=== PATIENT | female | born 2000 | race Caucasian/White ===

== ENCOUNTER 2024-11-13 09:12 | Emergency (ER) | payer BC ==
[2024-11-13 10:13] LABS: Bilirubin Neg (Negative); Blood, Urine 150 (Negative); Clarity Clear (Clear); Glucose, Urine (Dipstick) Normal (Negative); Ketone, Urine Negative (Negative); Leukocyte 100 (Negative); Nitrite Negative (Negative); Protein, Urine (Dipstick) 15 mg/dl (Neg-Trace); Specific Gravity, Urine 1.005 (1.005-1.030); Urobilinogen Normal mg/dL (Less than 2)
[2024-11-13 10:24] LABS: CAUTI Indications for Culture Acute Hematuria
[2024-11-13 10:25] LABS: Bacteria/HPF 2+ HPF (None Seen)
[2024-11-13 10:26] LABS: Urine Culture Reflex No No
[2024-11-13 10:26] LABS: ALT (SGPT) 13 U/L (Less than 34); AST (SGOT) 20 U/L (11-34); Albumin 3.9 g/dL (3.1-4.5); Alkaline Phosphatase 50 U/L (40-110); Anion Gap 11 mmol/L (10-20); BUN (Urea Nitrogen) 13 mg/dL (7.0-18.7); Bilirubin, Total 0.8 mg/dL (0.3-1.2); Calc. Creatinine Clearance 0 mL/min (70-130); Calcium 9.6 mg/dL (7.8-10.44); Carbon Dioxide 23 mmol/L (22-29); Chloride 107 mmol/L (98-107); Estimated GFR 116; Globulin 3.1 g/dL (2.4-3.5); Glucose 93 mg/dL (70-105); Potassium 3.5 mmol/L (3.5-5.1); Sodium 137 mmol/L (136-145)
[2024-11-13 10:27] LABS: #Basophils Less than 0.03 10x3/uL (0.0-0.2); #Eosinophils 0.05 10x3/uL (0.0-0.5); #Monocytes 0.49 10x3/uL (0.0-1.1); #Neutrophils 4.68 10x3/uL (1.5-8.4); %Basophils 0.3 % (0.0-2.0); %Eosinophils 0.8 % (0.0-6.0); %Lymphocytes 18.5 % (18.0-47.0); %Monocytes 7.6 % (0.0-10.0); %Neutrophils 72.6 % (40.0-75.0); Hematocrit 35.7 % (34.9-44.5); Hemoglobin 12.2 g/dL (12.0-15.5); Mean Corpuscular HGB CONC 34.2 g/dL (32.0-36.0); Mean Corpuscular Hemoglobin 30.7 pg (27.0-33.0); Mean Corpuscular Volume 89.7 fL (81.6-98.3); RBC Distribution Width 12.4 % (11.5-14.5); Red Blood Cell (RBC) Count 3.98 10x6/uL (3.90-5.03); White Blood Cell (WBC) Count 6.44 10x3/uL (3.5-10.5)
[2024-11-13 10:34] LABS: Mean Platelet Volume 10.9 fL (7.4-10.4); Platelet Count 134 10x3/uL (150-450)
== END 2024-11-13 13:38 | disposition home or self-care (01) ==
LOC: CSHERS 09:12
DX: O44.12 Complete placenta previa with hemorrhage, second trimester (principal); O98.912 Unspecified maternal infectious and parasitic disease complicating pregnancy, second trimester; R82.71 Bacteriuria; Z3A.14 14 weeks gestation of pregnancy
CPT/HCPCS: 36415; 76856; 80053; 81001; 84702; 85025; 86900; 86901; 90384; 96372

== ENCOUNTER 2025-05-02 20:04 | Inpatient (IN) | payer BC ==
[2025-05-02 20:58] VITALS: BMI 34.4
[2025-05-02] MEDS ORDERED: Lidocaine 1% (PF) 30 ML VIAL SC PRN (21:32)
[2025-05-02] MEDS ORDERED: Ibuprofen 800 MG TAB PO PRN (21:32)
[2025-05-02] MEDS ORDERED: Ondansetron PF 4 MG/2 ML Vial IVP PRN (21:32)
[2025-05-02] MEDS ORDERED: HYDROcodone/Acetaminophen 5/325 mg Tablet PO PRN ×2 (21:32)
[2025-05-02] MEDS: Penicillin G Potassium 5 MILL.UNITS VIAL ONE (21:45)
[2025-05-02] MEDS ORDERED: Oxytocin 30 units/NS 500 ML 500 ML IV SCH ×2 (22:00)
[2025-05-02] MEDS ORDERED: Penicillin G Potassium 5 MILL.UNITS in Sodium Chloride 0.9% 100 ML IVPB SCH (22:00)
[2025-05-02 22:04] LABS: Platelet Count 123 10x3/uL (150-450)
[2025-05-02 22:06] LABS: Hematocrit 34.6 % (34.9-44.5); Hemoglobin 11.9 g/dL (12.0-15.5); Mean Corpuscular Hemoglobin 31.2 pg (27.0-33.0); Mean Corpuscular Volume 90.8 fL (81.6-98.3); Red Blood Cell (RBC) Count 3.81 10x6/uL (3.90-5.03); White Blood Cell (WBC) Count 10.83 10x3/uL (3.5-10.5)
[2025-05-02 22:19] LABS: Syphilis Antibody Index 0.06 S/CO (<1.00 Non-Reactive)
[2025-05-02 22:29] LABS: Hep B Surf Ag - L&D Non-Reactive S/CO (NonReactive)
[2025-05-03] MEDS ORDERED: Ondansetron PF 4 MG/2 ML Vial IVP PRN ×2 (02:32→08:41)
[2025-05-03] MEDS ORDERED: Acetaminophen 325 MG TAB PO PRN (02:32)
[2025-05-03] MEDS ORDERED: diphenhydrAMINE 50 MG/ML VIAL IVP PRN (02:32)
[2025-05-03] MEDS: fentaNYL/Ropivacaine Epidural 100 ML ONE (02:36)
[2025-05-03] MEDS: Penicillin G 2.5 MILL.units 2.5 MILL.UNITS in Premix 1 BAG IVPB SCH (02:44)
[2025-05-03] MEDS ORDERED: Communication Order-Pharmacy FS SCH (02:45)
[2025-05-03] MEDS ORDERED: fentaNYL 2 mcg/Ropivacaine 0.2% Epidural 100 ML CADD EPIDURAL SCH (02:45)
[2025-05-03] MEDS: hydrALAZINE 20 MG/ML VIAL SLOW IVP PRN (05:25)
[2025-05-03] MEDS: Magnesium Sulfate 20 gm/500 ml 20 GM/500 ML BAG IVPB PRN (05:58)
[2025-05-03] MEDS ORDERED: Calcium Gluc 4.6 MEQ/10 ML (100 MG/ML) IV PRN (06:10)
[2025-05-03] MEDS ORDERED: Lanolin Ointment 7 GM TUBE TOP PRN (08:41)
[2025-05-03] MEDS ORDERED: diphenhydrAMINE 25 MG CAP PO PRN (08:41)
[2025-05-03] MEDS ORDERED: Benzocaine-Menthol 82.5 ML CAN TOP PRN (08:41)
[2025-05-03] MEDS ORDERED: hydrALAZINE 20 MG/ML VIAL SLOW IVP PRN (08:41)
[2025-05-03] MEDS ORDERED: Milk Of Magnesia 30 ML UDCUP PO PRN (08:41)
[2025-05-03] MEDS ORDERED: Bisacodyl 10 MG SUPP PR PRN (08:41)
[2025-05-03] MEDS ORDERED: Oxytocin 30 units/NS 500 ML 500 ML IV SCH (08:45)
[2025-05-03] MEDS ORDERED: Bupivacaine 0.25% HCL 30 ML VIAL ONE (09:00)
[2025-05-03 09:35] LABS: Platelet Count 123 10x3/uL (150-450)
[2025-05-03 09:40] LABS: Platelet Count 123.0 10x3/uL (130-400)
[2025-05-03 09:50] LABS: D-Dimer Test 7.95 mcg/mL (0.19-0.50); Fibrinogen 418.0 mg/dL (220-504); INR-International Normal Ratio 0.9; PTT 23.4 sec (22.0-33.0); Prothrombin Time 9.8 sec (9.5-12.1)
[2025-05-03 10:26] LABS: Hematocrit 34.1 % (34.9-44.5); Hemoglobin 11.2 g/dL (12.0-15.5); Mean Corpuscular Hemoglobin 30.5 pg (27.0-33.0); Mean Corpuscular Volume 92.9 fL (81.6-98.3); Red Blood Cell (RBC) Count 3.67 10x6/uL (3.90-5.03); White Blood Cell (WBC) Count 15.65 10x3/uL (3.5-10.5)
[2025-05-03] MEDS: Ibuprofen 800 MG TAB PO SCH (13:29)
[2025-05-03] MEDS: Ferrous Sulfate 325 MG TAB PO SCH (21:53)
[2025-05-04] MEDS ORDERED: HYDROcodone/Acetaminophen 5/325 mg Tablet PO PRN ×6 (02:33→10:51)
[2025-05-04] MEDS ORDERED: Boostrix 0.5 ML (Tdap) VIAL (>/=7 yrs of age) IM ONE (08:47)
[2025-05-04] MEDS ORDERED: hydrALAZINE 20 MG/ML VIAL SLOW IVP PRN ×2 (08:47→10:51)
[2025-05-04] MEDS ORDERED: Benzocaine-Menthol 82.5 ML CAN TOP PRN ×2 (08:47→10:51)
[2025-05-04] MEDS ORDERED: Milk Of Magnesia 30 ML UDCUP PO PRN ×2 (08:47→10:51)
[2025-05-04] MEDS ORDERED: Bisacodyl 10 MG SUPP PR PRN ×2 (08:47→10:51)
[2025-05-04 09:14] LABS: Hematocrit 29.7 % (34.9-44.5); Hemoglobin 9.7 g/dL (12.0-15.5); Mean Corpuscular Hemoglobin 30.1 pg (27.0-33.0); Mean Corpuscular Volume 92.2 fL (81.6-98.3); Red Blood Cell (RBC) Count 3.22 10x6/uL (3.90-5.03); White Blood Cell (WBC) Count 11.99 10x3/uL (3.5-10.5)
[2025-05-04 09:16] LABS: Platelet Count 132 10x3/uL (150-450)
[2025-05-04] MEDS ORDERED: Ondansetron PF 4 MG/2 ML Vial IVP PRN (10:51)
[2025-05-04] MEDS ORDERED: diphenhydrAMINE 25 MG CAP PO PRN (10:51)
[2025-05-04] MEDS ORDERED: Lanolin Ointment 7 GM TUBE TOP PRN (10:51)
[2025-05-04] MEDS: Magnesium Sulfate 20 gm/500 ml 20 GM/500 ML BAG ONE (10:56)
[2025-05-04] MEDS: Boostrix 0.5 ML (Tdap) VIAL (>/=7 yrs of age) IM ONE (10:57)
[2025-05-04] MEDS: NIFEdipine XL 30 MG ER.TAB PO SCH (11:57)
[2025-05-04] MEDS ORDERED: Ibuprofen 800 MG TAB PO SCH (14:00)
[2025-05-04] MEDS: Ibuprofen 800 MG TAB PO SCH (14:10)
[2025-05-04] MEDS ORDERED: Ferrous Sulfate 325 MG TAB PO SCH (17:00)
[2025-05-04] MEDS: Ferrous Sulfate 325 MG TAB PO SCH (17:25)
[2025-05-05] MEDS: NIFEdipine XL 30 MG ER.TAB PO SCH (08:47)
[2025-05-05 11:38] VITALS: BP 130/79; TEMP 98.3
== END 2025-05-05 13:50 | disposition home or self-care (01) | DRG 806 ==
LOC: CSHLD 20:04 → CSHPP 05-04 10:26
PROVIDERS: ADMIT Obstetrics & Gynecology; ATTEND Obstetrics & Gynecology
PROC: 10E0XZZ Delivery of Products of Conception, External Approach (ICD-10-PCS; principal; 2025-05-03)
PROC: 0KQM0ZZ Repair Perineum Muscle, Open Approach (ICD-10-PCS; 2025-05-03)
DX: O14.14 Severe pre-eclampsia complicating childbirth (principal); D62 Acute posthemorrhagic anemia; Z37.0 Single live birth; O99.12 Other diseases of the blood and blood-forming organs and certain disorders involving the immune mechanism complicating childbirth; O70.1 Second degree perineal laceration during delivery; Z3A.39 39 weeks gestation of pregnancy; Z88.2 Allergy status to sulfonamides; Z79.899 Other long term (current) drug therapy; D69.6 Thrombocytopenia, unspecified
CPT/HCPCS: 36415; 51702; 85027; 85049; 85300; 85362; 85384; 85461; 85610; 85730; 86780; 86850; 86870; 86900; 86901; 87340; 90384; 96372; J0360; J0665; J2540; J3475; J7120